=== PATIENT | male | born 1955 | race Caucasian/White ===

== ENCOUNTER 2016-12-28 14:16 | Inpatient (IN) | payer MEDICAID ==
[~2016-12-28] VITALS: Ht 154.9 cm; Wt 73.0 kg
[~2016-12-28 14:16] MED LIST: ASPI-1159 PO; ASPI-1160 PO; CHLO25TA27 PO; CLOP75TA15 PO; LIP40 PO; Lisinopril PO
[2016-12-28 15:45] LABS: BASOPHILS % 0.3 % (0.0-2.0); EOSINOPHILS % 0.3 % (0.0-5.0); HEMATOCRIT. 32.2 % (42.0-52.0); HEMOGLOBIN. 10.7 g/dL (14.0-18.0); LYMPHOCYTES % 9.9 % (20.0-50.0); MEAN CORPUSCULAR HEMOGLOBIN 26.6 pg (28.0-32.0); MEAN CORPUSCULAR VOLUME 79.9 fL (80.0-94.0); MEAN PLATELET VOLUME 8.7 fl (7.4-10.4); NEUTROPHILS % 84.5 % (40.0-76.0); PLATELET 270 x1000/uL (130-400); RED BLOOD CELL COUNT 4.03 mill/uL (4.7-6.1); RED CELL DISTRIBUTION WIDTH 14.8 % (11.6-14.6)
[2016-12-28 15:53] LABS: INR 1.1; PARTIAL THROMBOPLASTIN TIME 24.3 sec (24.0-34.0); PROTHROMBIN TIME 11.5 sec
[2016-12-28 15:54] LABS: CARBON DIOXIDE 26 mEq/L (21-32); CHLORIDE 109 mEq/L (98-107)
[2016-12-28 20:00] VITALS: BP 132/74
[2016-12-28 21:10] VITALS: BP 131/82
[2016-12-28 23:12] LABS: HEMATOCRIT 33.8 % (42.0-52.0); HEMOGLOBIN 11.1 g/dL (14.0-18.0)
[2016-12-28] MEDS: LACTATED RINGERS 1,000 ML IV SCH (23:49)
[2016-12-28] MEDS: CEFTRIAXONE 1 G PREMIX 50 ML IV SCH (23:49)
[2016-12-29] VITALS: BP 119/64
[2016-12-29] MEDS: OPIUM/BELLADONNA ALKALOIDS 30/16.2MG SUPP PR SCH ×2 (01:17→11:51)
[2016-12-29 04:00] VITALS: BP 119/64
[2016-12-29 07:45] LABS: CARBON DIOXIDE 23 mEq/L (21-32); CHLORIDE 106 mEq/L (98-107)
[2016-12-29 08:00] VITALS: BP 107/59
[2016-12-29 08:03] LABS: BASOPHILS % 0.1 % (0.0-2.0); EOSINOPHILS % 0.1 % (0.0-5.0); HEMATOCRIT. 26.1 % (42.0-52.0); HEMOGLOBIN. 8.8 g/dL (14.0-18.0); LYMPHOCYTES % 9.5 % (20.0-50.0); MEAN CORPUSCULAR HEMOGLOBIN 26.5 pg (28.0-32.0); MEAN CORPUSCULAR VOLUME 79.1 fL (80.0-94.0); MEAN PLATELET VOLUME 9.3 fl (7.4-10.4); MONOCYTES % 5.9 % (2.0-8.0); NEUTROPHILS % 84.4 % (40.0-76.0); PLATELET 229 x1000/uL (130-400); RED CELL DISTRIBUTION WIDTH 14.9 % (11.6-14.6)
[2016-12-29] MEDS ORDERED: BISACODYL 5MG TABLET PO PRN (08:15)
[2016-12-29] MEDS ORDERED: ASPIRIN 81MG TABLET PO SCH (09:00)
[2016-12-29] MEDS: HYDROCODONE/ACETAMINOPHEN 10/325MG TABLET PO PRN ×2 (09:35→13:17)
[2016-12-29] MEDS: FERROUS SULFATE 325MG TABLET PO SCH ×3 (11:16→16:55)
[2016-12-29] MEDS: DOCUSATE SODIUM 100MG CAPSULE PO SCH ×2 (11:16→16:55)
[2016-12-29] MEDS: LISINOPRIL 40MG TABLET PO SCH (11:17)
[2016-12-29] MEDS: OXYBUTYNIN CHLORIDE 5MG TABLET PO SCH ×3 (11:18→16:55)
[2016-12-29] MEDS: LACTATED RINGERS 1,000 ML IV SCH (11:43)
[2016-12-29 12:00] VITALS: BP_SYST 114; BP_SYST 155; BP_DIAS 71; BP_DIAS 96
[2016-12-29 16:00] VITALS: BP 106/61
[2016-12-29 20:00] VITALS: BP 113/63
[2016-12-29] MEDS: BICALUTAMIDE 50 MG TABLET PO SCH (22:06)
[2016-12-29] MEDS: ATORVASTATIN CALCIUM 40MG TABLET PO SCH (22:06)
[2016-12-29] MEDS: CEFTRIAXONE 1 G PREMIX 50 ML IV SCH (23:07)
[2016-12-30] VITALS: BP 98/48
[2016-12-30] MEDS: LACTATED RINGERS 1,000 ML IV SCH ×2 (01:35→14:42)
[2016-12-30 04:00] VITALS: BP 106/52
[2016-12-30 07:13] LABS: BASOPHILS % 0.2 % (0.0-2.0); EOSINOPHILS % 1.9 % (0.0-5.0); HEMATOCRIT. 25.4 % (42.0-52.0); HEMOGLOBIN. 8.6 g/dL (14.0-18.0); LYMPHOCYTES % 18.7 % (20.0-50.0); MEAN CORPUSCULAR HEMOGLOBIN 27.1 pg (28.0-32.0); MEAN CORPUSCULAR VOLUME 80.1 fL (80.0-94.0); MEAN PLATELET VOLUME 9.2 fl (7.4-10.4); MONOCYTES % 5.8 % (2.0-8.0); NEUTROPHILS % 73.4 % (40.0-76.0); PLATELET 197 x1000/uL (130-400); RED BLOOD CELL COUNT 3.17 mill/uL (4.7-6.1); RED CELL DISTRIBUTION WIDTH 15.1 % (11.6-14.6)
[2016-12-30 07:27] LABS: CARBON DIOXIDE 24 mEq/L (21-32); CHLORIDE 108 mEq/L (98-107)
[2016-12-30 08:00] VITALS: BP 106/68
[2016-12-30] MEDS: FERROUS SULFATE 325MG TABLET PO SCH ×3 (08:29→17:18)
[2016-12-30] MEDS: DOCUSATE SODIUM 100MG CAPSULE PO SCH ×2 (08:30→17:18)
[2016-12-30] MEDS: LISINOPRIL 40MG TABLET PO SCH (09:00)
[2016-12-30] MEDS: OXYBUTYNIN CHLORIDE 5MG TABLET PO SCH ×3 (09:10→17:18)
[2016-12-30] MEDS: OPIUM/BELLADONNA ALKALOIDS 30/16.2MG SUPP PR SCH (09:13)
[2016-12-30] MEDS: BICALUTAMIDE 50 MG TABLET PO SCH (09:14)
[2016-12-30] MEDS: HYDROCODONE/ACETAMINOPHEN 10/325MG TABLET PO PRN (10:21)
[2016-12-30 12:00] VITALS: BP 101/49
[2016-12-30 16:00] VITALS: BP 98/55
[2016-12-30 20:00] VITALS: BP 129/86
[2016-12-30] MEDS: ATORVASTATIN CALCIUM 40MG TABLET PO SCH (22:39)
[2016-12-30] MEDS: CEFTRIAXONE 1 G PREMIX 50 ML IV SCH (22:39)
[2016-12-31] VITALS: BP 112/63
[2016-12-31] MEDS: LACTATED RINGERS 1,000 ML IV SCH ×2 (02:29→17:54)
[2016-12-31] MEDS: HYDROCODONE/ACETAMINOPHEN 10/325MG TABLET PO PRN ×2 (02:33→22:22)
[2016-12-31 04:00] VITALS: BP 115/65
[2016-12-31 08:00] VITALS: BP 118/68
[2016-12-31] MEDS: FERROUS SULFATE 325MG TABLET PO SCH ×3 (09:28→17:53)
[2016-12-31] MEDS: DOCUSATE SODIUM 100MG CAPSULE PO SCH ×2 (09:28→17:53)
[2016-12-31] MEDS: LISINOPRIL 40MG TABLET PO SCH (09:28)
[2016-12-31] MEDS: OXYBUTYNIN CHLORIDE 5MG TABLET PO SCH ×3 (09:29→17:53)
[2016-12-31] MEDS: BICALUTAMIDE 50 MG TABLET PO SCH (09:30)
[2016-12-31] MEDS: OPIUM/BELLADONNA ALKALOIDS 30/16.2MG SUPP PR SCH (09:44)
[2016-12-31 12:00] VITALS: BP 114/65
[2016-12-31 16:00] VITALS: BP 126/82
[2016-12-31 20:00] VITALS: BP 120/62
[2016-12-31] MEDS: ATORVASTATIN CALCIUM 40MG TABLET PO SCH ×2 (22:00→22:01)
[2016-12-31] MEDS: CEFTRIAXONE 1 G PREMIX 50 ML IV SCH (22:00)
[2017-01-01] VITALS (9 sets, daily range): BP systolic 121–139; BP diastolic 68–87
[2017-01-01] MEDS: HYDROCODONE/ACETAMINOPHEN 10/325MG TABLET PO PRN (03:42)
[2017-01-01 06:27] LABS: INR 1.1; PARTIAL THROMBOPLASTIN TIME 26.3 sec (24.0-34.0)
[2017-01-01] MEDS: LACTATED RINGERS 1,000 ML IV SCH (06:55)
[2017-01-01 07:01] LABS: CARBON DIOXIDE 28 mEq/L (21-32); CHLORIDE 106 mEq/L (98-107)
[2017-01-01 07:26] LABS: BASOPHILS % 0.1 % (0.0-2.0); EOSINOPHILS % 1.5 % (0.0-5.0); HEMOGLOBIN. 8.9 g/dL (14.0-18.0); LYMPHOCYTES % 11.9 % (20.0-50.0); MEAN CORPUSCULAR VOLUME 79.4 fL (80.0-94.0); MEAN PLATELET VOLUME 9.5 fl (7.4-10.4); MONOCYTES % 4.8 % (2.0-8.0); NEUTROPHILS % 81.7 % (40.0-76.0); PLATELET 267 x1000/uL (130-400); RED BLOOD CELL COUNT 3.28 mill/uL (4.7-6.1); RED CELL DISTRIBUTION WIDTH 14.9 % (11.6-14.6)
[2017-01-01] MEDS: FERROUS SULFATE 325MG TABLET PO SCH ×3 (07:50→17:24)
[2017-01-01] MEDS: DOCUSATE SODIUM 100MG CAPSULE PO SCH ×2 (08:23→17:24)
[2017-01-01] MEDS: OXYBUTYNIN CHLORIDE 5MG TABLET PO SCH ×3 (08:23→17:24)
[2017-01-01] MEDS: BICALUTAMIDE 50 MG TABLET PO SCH (08:23)
[2017-01-01] MEDS: LISINOPRIL 40MG TABLET PO SCH (08:23)
[2017-01-01] MEDS: OPIUM/BELLADONNA ALKALOIDS 30/16.2MG SUPP PR SCH (08:29)
[2017-01-01] MEDS ORDERED: MIDAZOLAM HCL 2 MG/2 ML VIAL ONE (13:38)
[2017-01-01] MEDS ORDERED: LIDOCAINE HCL 1% 20ML VIAL (Pyxis) INJ ONE (13:43)
[2017-01-01] MEDS ORDERED: PROPOFOL 200MG/20ML VIAL IV ONE (13:43)
[2017-01-01] MEDS ORDERED: FENTANYL CITRATE/PF 50MCG/ML 2ML VIAL ONE ×2 (13:49→14:02)
[2017-01-01] MEDS ORDERED: HYDROMORPHONE HCL/PF 2MG/ML CPJ IV PRN (14:15)
[2017-01-01] MEDS ORDERED: ONDANSETRON HCL 4MG/2ML VIAL IV PRN (14:15)
[2017-01-01] MEDS ORDERED: SODIUM CHLORIDE 0.9% 1,000 ML IV SCH (14:15)
[2017-01-01] MEDS ORDERED: ONDANSETRON HCL 4MG/2ML VIAL ONE (14:38)
[2017-01-01] MEDS ORDERED: LORAZEPAM 1MG TABLET PO PRN (15:00)
[2017-01-01] MEDS ORDERED: HYDROCODONE/ACETAMINOPHEN 10/325MG TABLET PO PRN (15:00)
[2017-01-01] MEDS ORDERED: MAGNESIUM HYDROXIDE 400MG/5ML 30ML UDC PO PRN (15:00)
[2017-01-01 16:25] LABS: HEMATOCRIT 31.2 % (42.0-52.0); HEMOGLOBIN 10.4 g/dL (14.0-18.0)
[2017-01-01] MEDS: CEFTRIAXONE 1 G PREMIX 50 ML IV SCH (22:25)
[2017-01-02] VITALS: BP 137/70
[2017-01-02 04:00] VITALS: BP 121/69
[2017-01-02 07:11] LABS: BASOPHILS % 0.4 % (0.0-2.0); EOSINOPHILS % 3.1 % (0.0-5.0); HEMATOCRIT. 28.2 % (42.0-52.0); HEMOGLOBIN. 9.4 g/dL (14.0-18.0); LYMPHOCYTES % 17.8 % (20.0-50.0); MEAN CORPUSCULAR VOLUME 81.4 fL (80.0-94.0); MONOCYTES % 5.8 % (2.0-8.0); NEUTROPHILS % 72.9 % (40.0-76.0); PLATELET 284 x1000/uL (130-400); RED BLOOD CELL COUNT 3.46 mill/uL (4.7-6.1); RED CELL DISTRIBUTION WIDTH 15.2 % (11.6-14.6)
[2017-01-02 07:20] LABS: CARBON DIOXIDE 26 mEq/L (21-32); CHLORIDE 107 mEq/L (98-107)
[2017-01-02 08:00] VITALS: BP 134/68
[2017-01-02] MEDS: DOCUSATE SODIUM 250MG CAPSULE PO SCH (08:50)
[2017-01-02] MEDS: LISINOPRIL 40MG TABLET PO SCH (08:50)
[2017-01-02] MEDS: FERROUS SULFATE 325MG TABLET PO SCH ×3 (08:51→17:06)
[2017-01-02] MEDS: OXYBUTYNIN CHLORIDE 5MG TABLET PO SCH (08:51)
[2017-01-02] MEDS: BICALUTAMIDE 50 MG TABLET PO SCH (08:51)
[2017-01-02] MEDS: OPIUM/BELLADONNA ALKALOIDS 30/16.2MG SUPP PR SCH (08:52)
[2017-01-02] MEDS ORDERED: CLOPIDOGREL 75MG TABLET PO SCH (09:00)
[2017-01-02] MEDS: LEVOFLOXACIN 500MG TABLET PO SCH (11:36)
[2017-01-02 12:00] VITALS: BP 116/65
[2017-01-02 16:00] VITALS: BP 125/88
[2017-01-02 20:00] VITALS: BP 130/82
[2017-01-02] MEDS: ATORVASTATIN CALCIUM 40MG TABLET PO SCH (20:32)
[2017-01-03] VITALS: BP 125/66
[2017-01-03 04:00] VITALS: BP 119/65
[2017-01-03 07:13] LABS: BASOPHILS % 0.4 % (0.0-2.0); EOSINOPHILS % 3.2 % (0.0-5.0); HEMATOCRIT. 28.3 % (42.0-52.0); HEMOGLOBIN. 9.6 g/dL (14.0-18.0); LYMPHOCYTES % 17.9 % (20.0-50.0); MEAN CORPUSCULAR HEMOGLOBIN 27.5 pg (28.0-32.0); MEAN CORPUSCULAR VOLUME 80.5 fL (80.0-94.0); MEAN PLATELET VOLUME 8.8 fl (7.4-10.4); MONOCYTES % 6.2 % (2.0-8.0); NEUTROPHILS % 72.3 % (40.0-76.0); PLATELET 290 x1000/uL (130-400); RED BLOOD CELL COUNT 3.51 mill/uL (4.7-6.1); RED CELL DISTRIBUTION WIDTH 15.4 % (11.6-14.6)
[2017-01-03 07:39] LABS: CHLORIDE 108 mEq/L (98-107)
[2017-01-03 07:48] LABS: CARBON DIOXIDE 24 mEq/L (21-32)
[2017-01-03 08:00] VITALS: BP 126/68
[2017-01-03] MEDS: DOCUSATE SODIUM 250MG CAPSULE PO SCH (08:20)
[2017-01-03] MEDS: LISINOPRIL 40MG TABLET PO SCH (08:21)
[2017-01-03] MEDS: FERROUS SULFATE 325MG TABLET PO SCH ×2 (08:21→12:27)
[2017-01-03] MEDS ORDERED: CLOPIDOGREL 75MG TABLET PO SCH (09:00)
[2017-01-03 12:00] VITALS: BP 107/55
[2017-01-03] MEDS: LEVOFLOXACIN 500MG TABLET PO SCH (12:13)
[2017-01-03 16:00] VITALS: BP 111/66
[2017-01-03 16:48] VITALS: BP 111/65
== END 2017-01-03 18:05 | disposition home or self-care (01) | DRG 482 ==
LOC: ER 14:56 → 6EST 15:28 → EDBEDREQ 15:41 → EDBEDREQSVC 16:43 → EDBEDREQ 16:43 → EDBEDREQTM 16:43 → ENRESERV 17:13
PROVIDERS: ADMIT Internal Medicine; ATTEND Internal Medicine
PROC: 30233N1 Transfusion of Nonautologous Red Blood Cells into Peripheral Vein, Percutaneous Approach (ICD-10-PCS; 2017-01-01)
PROC: 0VT08ZZ Resection of Prostate, Via Natural or Artificial Opening Endoscopic (ICD-10-PCS; principal; 2017-01-01 13:00)
DX: N40.1 Benign prostatic hyperplasia with lower urinary tract symptoms (principal); D62 Acute posthemorrhagic anemia; N32.89 Other specified disorders of bladder; R31.0 Gross hematuria; E83.51 Hypocalcemia; I10 Essential (primary) hypertension; E78.5 Hyperlipidemia, unspecified; I25.10 Atherosclerotic heart disease of native coronary artery without angina pectoris; R33.8 Other retention of urine; R73.9 Hyperglycemia, unspecified; E66.9 Obesity, unspecified; Z68.30 Body mass index [BMI] 30.0-30.9, adult; Z95.5 Presence of coronary angioplasty implant and graft
CPT/HCPCS: 36415; 76770; 80048; 80051; 83036; 85014; 85018; 85025; 85610; 85730; 86850; 86900; 86920; 87086; 88305; 93970; 99285; J0696; J2250; J2405; J2704; J3010; J3490; J7030; J7040; J7050; J7120; P9016